=== PATIENT | male | born 1960 | race Hispanic/Latino ===

== ENCOUNTER 2024-02-27 13:01 | Emergency (ER) | payer MEDICARE, OTHER ==
[~2024-02-27] VITALS: Ht 175.3 cm; Wt 72.6 kg
[2024-02-27 14:45] LABS: BASOPHILS # (AUTO) 0.08 K/uL (0.00-0.20); BASOPHILS % (AUTO) 0.6 % (0.0-5.0); EOSINOPHILS # (AUTO) 0.33 K/uL (0.00-0.70); EOSINOPHILS % (AUTO) 2.3 % (0.0-8.0); HEMATOCRIT 40.9 % (42-54); LYMPHOCYTES # (AUTO) 2.8 K/uL (1.0-4.8); LYMPHOCYTES % (AUTO) 19.4 % (21.0-51.0); MEAN CORPUSCULAR HEMOGLOBIN 31.7 pg (27.0-33.0); MEAN CORPUSCULAR HGB CONC 37.2 g/dL (32.0-36.0); MEAN CORPUSCULAR VOLUME 85.4 fL (79-99); MONOCYTES # (AUTO) 1.1 K/uL (0.1-1.0); MONOCYTES % (AUTO) 7.7 % (3.0-13.0); NEUTROPHILS # (AUTO) 9.8 K/uL (1.8-7.7); NEUTROPHILS % (AUTO) 68.6 % (40.0-77.0); PLATELET COUNT (AUTO) 270 K/uL (130-400); RED BLOOD CELL COUNT(AUTO) 4.79 MIL/uL (4.50-6.20); RED CELL DISTRIBUTION WIDTH 13.6 % (11.0-15.5); WHITE BLOOD COUNT (AUTO) 14.2 K/uL (4.8-10.8)
[2024-02-27] MEDS: dexaMETHasone SOD PHOSPHATE 4 MG/ML 1ML VIAL IM ONE (14:51)
[2024-02-27 14:57] LABS: POTASSIUM 4.1 mmol/L (3.5-5.1)
[2024-02-27] MEDS ORDERED: BENZ-39 PO (16:40)
[2024-02-27] MEDS ORDERED: METH4TAB3 PO (16:40)
[2024-02-27 16:46] VITALS: BP 159/77; PULSE 70; RESP 19; O2SAT 98
== END 2024-02-27 16:47 | disposition home or self-care (01) ==
LOC: EDH 13:01
DX: R05.9 Cough, unspecified (principal); D72.829 Elevated white blood cell count, unspecified; Z20.822 Contact with and (suspected) exposure to COVID-19
CPT/HCPCS: 99284; 71045; 87426; 80048; 85025; 36415; 96372; J1100